=== PATIENT | female | born 1995 | race American Indian/Alaskan Native ===

== ENCOUNTER 2022-01-21 22:32 | Emergency (ER) | payer MEDICAID ==
[2022-01-22 04:15] LABS: Mucus,Urine 3+ /HPF
[2022-01-22 04:16] LABS: Bilirubin,Urine NEG (Negative); Color,Urine Yellow (Yellow)
[2022-01-22 04:18] LABS: Blood,Urine Trace (Negative); Protein,Urine <30 mg dL mg/dL (Negative); Urobilinogen,Urine < 2.0 mg/dL (<2.0)
[2022-01-22 04:21] LABS: HCG Qualitative,Urine Positive (Negative)
--- NOTE | 2022-01-22 05:27 | Emergency Department Report ---
ED General Adult HPI - General Chief complaint: Sore Throat Stated complaint: FEELING ILL Time Seen by Provider: 01/22/22 04:45 Source: patient Mode of arrival: Ambulatory Limitations: No Limitations - History of Present Illness Initial comments: 26-year-old male female at rest, complaining of a few day history of sore throat muscle aches and nausea after coming contact with the second epidural at her place of employment. She also reports having been late with her menstruation this month and having had similar symptoms with her previous however did not evaluate for at home. Reports no hemoptysis no hematemesis hematochezia, no hematuria -: Gradual Radiation: non-radiation Quality: dull Consistency: constant Improves with: none Treatments Prior to Arrival: none - Related Data Previous Rx's Medication Instructions Recorded Last Taken Type Nitrofurantoin Clarke/M-Cryst 100 mg PO Q12HR #14 capsule 01/22/22 Unknown Rx [Macrobid CAP] Allergies Allergy/AdvReac Type Severity Reaction Status Date / Time No Known Allergies Allergy Unverified 01/22/22 03:50 ED Review of Systems ROS: Stated complaint: FEELING ILL Other details as noted in HPI Comment: All other systems reviewed and negative ED Past Medical Hx - Medications Home Medications: Home Medications Medication Instructions Recorded Confirmed Last Taken Type Nitrofurantoin Clarke/M-Cryst 100 mg PO Q12HR #14 capsule 01/22/22 Unknown Rx [Macrobid CAP] ED Physical Exam - General Limitations: No Limitations General appearance: alert, in no apparent distress - Head Head exam: Present: atraumatic, normocephalic - Eye Eye exam: Present: normal appearance, PERRL, EOMI - ENT ENT exam: Present: mucous membranes moist, other (Pharyngeal mild erythema) - Neck Neck exam: Present: normal inspection, full ROM - Respiratory Respiratory exam: Present: normal lung sounds bilaterally. Absent: respiratory distress, wheezes, rhonchi - Cardiovascular Cardiovascular Exam: Present: regular rate, normal rhythm. Absent: systolic murmur, diastolic murmur, rubs, gallop - GI/Abdominal GI/Abdominal exam: Present: soft, normal bowel sounds - Extremities Exam Extremities exam: Present: normal inspection, normal capillary refill - Back Exam Back exam: Present: normal inspection, full ROM. Absent: CVA tenderness (R), CVA tenderness (L) - Neurological Exam Neurological exam: Present: alert, oriented X3, CN II-XII intact - Psychiatric Psychiatric exam: Present: normal affect, normal mood - Skin Skin exam: Present: warm, dry, intact, normal color. Absent: rash ED Course Vital Signs 01/21/22 22:34 Temperature 98.7 F Pulse Rate 100 H Respiratory 18 Rate Blood Pressure 148/87 O2 Sat by Pulse 98 Oximetry ED Medical Decision Making - Medical Decision Making 36-year-old [place] female presents emerged from having Mr. Having vague symptoms may be consistent with a pressure tract infection however the symptoms have been present with her previous nonetheless she was found to be today with [place] and evolving urinary tract infection she was treated for urinary tract infection and advised follow-up with an [facility] Critical care attestation.: If time is entered above; I have spent that time in minutes in the direct care of this critically ill patient, excluding procedure time. ED Disposition Clinical Impression: Positive urine test, UTI (urinary tract infection) Disposition: HOME / SELF CARE / HOMELESS Is pt being admited?: No Does the pt Need Aspirin: No Condition: Stable Instructions: and Urinary Tract Infection, Antibiotic Medicine, Adult, [id number], Antibiotic Medicine, Adult, Urinary Tract Infection, Adult Additional Instructions: You did schedule and confirm today please be sure to follow-up with an [facility] for definitive treatment Prescriptions: Nitrofurantoin Clarke/M-Cryst [Macrobid CAP] 100 mg PO Q12HR #14 capsule Referrals: ROSEMARY SHIRLEY MD [Primary Care Provider] - 3-5 Days [facility] [Provider Group] - 3-5 Days
[2022-01-22 05:55] VITALS: BP 126/71
== END 2022-01-22 05:55 | disposition home or self-care (01) ==
LOC: ED 22:32
DX: N39.0 Urinary tract infection, site not specified (principal); Z3A.01 Less than 8 weeks gestation of pregnancy; Z32.01 Encounter for pregnancy test, result positive
CPT/HCPCS: 81001; 81025; 99283